=== PATIENT | female | born 1955 | race Caucasian/White ===

== ENCOUNTER 2016-12-13 15:15 | Emergency (ER) | payer OTHER, BC ==
--- NOTE | 2016-12-13 16:19 | EDDOCDS ---
Nurse's Notes [facility] Name: Lizette Jeter Age: 61 yrs Sex: Female : 1955 Arrival Date: 12/13/2016 Time: 15:15 Bed I1 / M1 Private MD: Nadine Diagnosis: Contact with and (suspected) exposure to potentially hazardous body fluids-blood to mouth Presentation: 12/13 15:26 Presenting complaint: Patient states: started an IV at 0930 the connection wasn't tight kpj and when she flushed the IV the connection came apart and bloody saline splashed into her mouth. Pt washed her mouth out with soap and water. Adult Sepsis Screening: The patient does not have new or worsening altered mentation. Patient's respiratory rate is less than 22. Systolic blood pressure is greater than 100. Patient has a qSOFA score of 0- Negative Sepsis Screen. Suicide/Homicide risk assessment- the patient denies having any suicidal and/or homicidal ideations and does not present with any other emotional, behavioral or mental health complaints. Status: Patient is not a therapeutic activities services worker or dependent. Transition of care: patient was not received from another setting of care. 15:26 Acuity: WANG Level 3 [facility] 15:26 Method Of Arrival: Walkin/Carried/Asstd [facility] Triage Assessment: 15:36 General: Appears in no apparent distress, Behavior is appropriate for age, pleasant. kpj Pain: Denies pain. Pt Declines HIV testing. Neurological: Level of Consciousness is awake, alert, Oriented to person, place, time. Respiratory: Airway is patent Respiratory effort is even, unlabored, Respiratory pattern is regular, symmetrical. Derm: Skin is pink, warm & dry. Musculoskeletal: No deficits noted. Historical: - Allergies: Latex (Anaphylaxis); preservatives (skin break down); - Home Meds: 1. metformin 750 mg HR Oral Tb24 1 tab 2 times per day (Last dose: 12/13/2016 05:30) 2. Aciphex 20 mg Oral TbEC 1 tab once daily (Last dose: 12/13/2016 05:30) 3. aspirin 81 mg Oral tab 1 tab once daily (Last dose: 12/13/2016 05:30) 4. multivitamin Oral tab 1 tablet daily (Last dose: 12/13/2016 05:30) 5. Colace oral 250 mg oral 1 cap once daily (Last dose: 12/13/2016 05:30) 6. Crestor 5 mg Oral tab 1 tab nightly (Last dose: 12/12/2016) 7. Cymbalta 30 mg Oral cpDR 1 cap nightly (Last dose: 12/12/2016) 8. biotin 1,000 mcg oral chew nightly (Last dose: 12/12/2016) 9. vivell dot 75 mcg bi weekly monday and fridays 10. Bydureon 2 mg/0.65 mL subcutaneous pnij 0.65 mL every 7 days monday 11. Miralax 17 gram/dose Oral powd once daily as needed - PMHx: GERD; Diabetes - NIDDM: controlled; Hypercholesterolemia; neuropathy; - PSHx: 3 c-sections; Hysterectomy; Appendectomy; Cholecystectomy; Laparoscopy; - Social history: Smoking status: Patient states was never smoker of tobacco. No barriers to communication noted, The patient speaks fluent Armenian. - Family history: Not pertinent. - : The pt / caregiver states he / she is not on anticoagulants. Home medication list is obtained from the patient. - Exposure Risk Screening:: None identified. Screenin:23 Sensitive Patient. kcs 16:01 Screening information is obtained from the patient. Fall risk: No risks identified. [facility] Assistance ADL's: requires no assistance with activities of daily living. Abuse/DV Screen: The patient / caregiver reports he/she is: not in a situation that causes fear, pain or injury. Nutritional screening: On diabetic diet. Advance Directives: Currently, there is no health care proxy. There is no active DNR order. There is no living will. There is no Power of Machine Whitener. Advance directive information has not previously been placed in an [facility] medical record. Further advance directive information is declined. home support is adequate. Assessment: 16:01 General: Appears in no apparent distress, comfortable, well nourished, well groomed, [facility] Behavior is appropriate for age, pleasant. Pain: Denies pain. Neurological: Level of Consciousness is awake, alert, Oriented to person, place, time. Respiratory: Airway is patent Respiratory effort is even, unlabored, Respiratory pattern is regular, symmetrical. GI: No deficits noted. Derm: Skin is pink, warm & dry. 16:16 Reassessment: Patient appears in no apparent distress at this time. Patient denies pain kpj at this time. Vital Signs: 15:36 BP 140 / 84; Pulse 82; Resp 16; Temp 98.7(O); Pulse Ox 96% on R/A; Weight 92.99 kg (R); kpj Height 5 ft. 7 in. (170.18 cm) (R); Pain 0/10; 15:36 Body Mass Index 32.11 (92.99 kg, 170.18 cm) [facility] Vitals: 15:36 Log In Time: December 13, 2016 at 15:35. [facility] ED Course: 15:17 Patient visited by Olivia Arango Digital Ad Trafficker. lbd 15:17 Nadine is Private Physician. lbd 15:17 Patient moved to Waiting lbd 15:18 Patient moved to I1 / M1 lbd 15:28 Triage Initiated kpj 15:49 Morgan Qureshi PA-C is PHCP. ar2 15:49 Rustam Hughes MD is Attending Physician. ar2 15:49 Patient visited by Morgan Qureshi PA-C. ar2 15:57 Employee Health Office, . is Referral Physician. ar2 16:01 Resting quietly. kpj 16:01 The patient / caregiver is instructed regarding the plan of care and ED course. Patient [facility] has correct armband on for positive identification. 16:01 No IV's were initiated during this patient's visit. No procedures done that require kpj assistance. 16:14 CBC with Diff Sent. kpj 16:14 Complete Comphrensive Metabolic Sent. kpj 16:14 HIV EXPOSED(ONLY WITH PEP SET) Sent. kpj 16:14 Hepatitis B Surface Antibody Sent. kpj 16:14 Hepatitis B Surface Antigen Sent. [facility] Order Results: There are currently no results for this order. Outcome: 15:59 Discharge ordered by Provider. ar2 16:16 Discharge Assessment: Patient awake, alert and oriented x 3. No cognitive and/or kpj functional deficits noted. Patient verbalized understanding of disposition instructions. patient administered narcotics - no. The following High Risk Discharge criteria are identified: None. Discharged to back to work. Condition: stable. Discharge instructions given to patient, Instructed on discharge instructions, follow up and referral plans. Demonstrated understanding of instructions, Pt was receptive of discharge instructions/ teaching. No special radiology studies were completed. Property :Personal belongings accompany Pt. 16:17 Patient left the ED. [facility] Signatures: Lorena Real RN RN kcs Olivia Arango, Digital Ad Trafficker Unit lbd Hilda Barriga RN RN Morgan Siddiqui PA-C PA-C ar2 Corrections: (The following items were deleted from the chart) 16:17 16:14 HEPATITIS C ANTIBODY+LAB sent. [facility] EDMS MTDD
--- NOTE | 2016-12-13 16:19 | EDDOCDS ---
Physician Documentation [facility] Name: Lizette Jeter Age: 61 yrs Sex: Female : 1955 Arrival Date: 12/13/2016 Time: 15:15 Bed I1 / M1 Private MD: Nadine Disposition: 12/13/16 15:59 Discharged to Home/Self Care. Impression: Contact with and (suspected) exposure to potentially hazardous body fluids - blood to mouth. - Condition is Stable. - Discharge Instructions: Body Fluid Exposure Information. - Medication Reconciliation, Local Pharmacy Hours form. - Follow up: Employee Health Office, .; When: Call to arrange an appointment; Reason: Recheck today's complaints, Continuance of care. - Problem is new. - Symptoms are unchanged. - Notes: contact employee health for follow up. Historical: - Allergies: Latex (Anaphylaxis); preservatives (skin break down); - Home Meds: 1. metformin 750 mg HR Oral Tb24 1 tab 2 times per day (Last dose: 12/13/2016 05:30) 2. Aciphex 20 mg Oral TbEC 1 tab once daily (Last dose: 12/13/2016 05:30) 3. aspirin 81 mg Oral tab 1 tab once daily (Last dose: 12/13/2016 05:30) 4. multivitamin Oral tab 1 tablet daily (Last dose: 12/13/2016 05:30) 5. Colace oral 250 mg oral 1 cap once daily (Last dose: 12/13/2016 05:30) 6. Crestor 5 mg Oral tab 1 tab nightly (Last dose: 12/12/2016) 7. Cymbalta 30 mg Oral cpDR 1 cap nightly (Last dose: 12/12/2016) 8. biotin 1,000 mcg oral chew nightly (Last dose: 12/12/2016) 9. vivell dot 75 mcg bi weekly monday and fridays 10. Bydureon 2 mg/0.65 mL subcutaneous pnij 0.65 mL every 7 days monday nights 11. Miralax 17 gram/dose Oral powd once daily as needed - PMHx: GERD; Diabetes - NIDDM: controlled; Hypercholesterolemia; neuropathy; - PSHx: 3 c-sections; Hysterectomy; Appendectomy; Cholecystectomy; Laparoscopy; - Social history: Smoking status: Patient states was never smoker of tobacco. No barriers to communication noted, The patient speaks fluent Tongan. - Family history: Not pertinent. - : The pt / caregiver states he / she is not on anticoagulants. Home medication list is obtained from the patient. - Exposure Risk Screening:: None identified. Vital Signs: 12/13 15:36 BP 140 / 84; Pulse 82; Resp 16; Temp 98.7(O); Pulse Ox 96% on R/A; Weight 92.99 kg / kpj 205.01 lbs (R); Height 5 ft. 7 in. (170.18 cm) (R); Pain 0/10; 15:36 Body Mass Index 32.11 (92.99 kg, 170.18 cm) [facility] MDM: 15:57 Consult Employee [employer] ([employer], 7:30a-4p) or Nursing Environmental Professional for source patient ar2 testing ordered. 15:57 Place PEP packet on chart ordered. ar2 15:58 CBC with Diff Ordered. EDMS 15:58 Complete Comphrensive Metabolic Ordered. EDMS 15:58 HIV EXPOSED(ONLY WITH PEP SET) Ordered. EDMS 15:58 Hepatitis B Surface Antibody Ordered. EDMS 15:58 Hepatitis B Surface Antigen Ordered. EDMS 16:01 Consult [employer] ([employer], 7:30a-4p) or Nursing Environmental Professional for source patient [facility] testing complete. 16:17 HEPATITIS C ANTIBODY Ordered. EDMS Signatures: Dispatcher [employer] Hilda Rosa RN RN Morgan Smith PA-C PA-C ar2 The chart was reviewed and I authenticate all verbal orders and agree with the evaluation and treatment provided.Corrections: (The following items were deleted from the chart) 16:17 15:58 HEPATITIS C ANTIBODY+LAB ordered. EDMS EDMS MTDD
[2016-12-13 16:30] LABS: BASO % 0.4 % (0.0-1.0); EOS # 0.1 K/mm3 (0.0-0.50); EOS % 1.6 % (0.0-3.0); LARGE UNSTAINED CELL # 0.1 K/mm3 (0.0-0.4); LARGE UNSTAINED CELL % 1.5 % (0.0-4.0); LYMPH # 2.5 K/mm3 (1.5-4.5); LYMPH % 27.2 % (24.0-44.0); MEAN CORPUSCULAR HEMOGLOBIN 29.8 pg (27.0-33.0); MEAN CORPUSCULAR HGB CONC 32.3 g/dl (32.0-36.5); MEAN CORPUSCULAR VOLUME 92.3 fl (80.0-96.0); MONO # 0.4 K/mm3 (0.0-0.8); MONO % 4.6 % (0.0-5.0); NEUTROPHILS # 5.6 K/mm3 (1.8-7.7); NEUTROPHILS % 64.7 % (36.0-66.0); PLATELET COUNT, AUTOMATED 337 k/mm3 (150-450); RED CELL DISTRIBUTION WIDTH 12.8 % (11.5-14.5); WHITE BLOOD COUNT 8.6 K/mm3 (4.0-10.0)
[2016-12-13 16:43] LABS: ALBUMIN 3.8 GM/DL (3.2-5.2); ALBUMIN/GLOBULIN RATIO 1.15 (1.00-1.93); ALKALINE PHOSPHATASE 89 U/L (45-117); ALT/SGPT 30 U/L (12-78); ANION GAP 10 MEQ/L (8-16); AST/SGOT 22 U/L (15-37); BILIRUBIN,TOTAL 0.2 MG/DL (0.2-1.0); BLOOD UREA NITROGEN 12 MG/DL (7-18); CALCIUM LEVEL 8.5 MG/DL (8.5-10.1); CARBON DIOXIDE LEVEL 24 MEQ/L (21-32); CHLORIDE LEVEL 105 MEQ/L (98-107); CREATININE FOR GFR 0.99 MG/DL (0.55-1.02); GLOMERULAR FILTRATION RATE > 60.0 (>51); GLUCOSE, FASTING 237 MG/DL (70-105); SODIUM LEVEL 139 MEQ/L (136-145); TOTAL PROTEIN 7.1 GM/DL (6.4-8.2)
[2016-12-13 16:55] LABS: CONTROL LINE INT CTR LINE PRESENT
[2016-12-14 09:59] LABS: HEPATITIS B SURFACE ANTIBODY POSITIVE (POSITIVE)
--- NOTE | 2016-12-15 17:18 | EDDOCDS ---
Nurse's Notes [facility] Name: Lizette Jeter Age: 61 yrs Sex: Female : 1955 Arrival Date: 12/13/2016 Time: 15:15 Bed I1 / M1 Private MD: Nadine Diagnosis: Contact with and (suspected) exposure to potentially hazardous body fluids-blood to mouth Presentation: 12/13 15:26 Presenting complaint: Patient states: started an IV at 0930 the connection wasn't tight kpj and when she flushed the IV the connection came apart and bloody saline splashed into her mouth. Pt washed her mouth out with soap and water. Adult Sepsis Screening: The patient does not have new or worsening altered mentation. Patient's respiratory rate is less than 22. Systolic blood pressure is greater than 100. Patient has a qSOFA score of 0- Negative Sepsis Screen. Suicide/Homicide risk assessment- the patient denies having any suicidal and/or homicidal ideations and does not present with any other emotional, behavioral or mental health complaints. Status: Patient is not a auto service dispatcher or dependent. Transition of care: patient was not received from another setting of care. 15:26 Acuity: WANG Level 3 [facility] 15:26 Method Of Arrival: Walkin/Carried/Asstd [facility] Triage Assessment: 15:36 General: Appears in no apparent distress, Behavior is appropriate for age, pleasant. kpj Pain: Denies pain. Pt Declines HIV testing. Neurological: Level of Consciousness is awake, alert, Oriented to person, place, time. Respiratory: Airway is patent Respiratory effort is even, unlabored, Respiratory pattern is regular, symmetrical. Derm: Skin is pink, warm & dry. Musculoskeletal: No deficits noted. Historical: - Allergies: Latex (Anaphylaxis); preservatives (skin break down); - Home Meds: 1. metformin 750 mg HR Oral Tb24 1 tab 2 times per day (Last dose: 12/13/2016 05:30) 2. Aciphex 20 mg Oral TbEC 1 tab once daily (Last dose: 12/13/2016 05:30) 3. aspirin 81 mg Oral tab 1 tab once daily (Last dose: 12/13/2016 05:30) 4. multivitamin Oral tab 1 tablet daily (Last dose: 12/13/2016 05:30) 5. Colace oral 250 mg oral 1 cap once daily (Last dose: 12/13/2016 05:30) 6. Crestor 5 mg Oral tab 1 tab nightly (Last dose: 12/12/2016) 7. Cymbalta 30 mg Oral cpDR 1 cap nightly (Last dose: 12/12/2016) 8. biotin 1,000 mcg oral chew nightly (Last dose: 12/12/2016) 9. vivell dot 75 mcg bi weekly monday and fridays 10. Bydureon 2 mg/0.65 mL subcutaneous pnij 0.65 mL every 7 days monday 11. Miralax 17 gram/dose Oral powd once daily as needed - PMHx: GERD; Diabetes - NIDDM: controlled; Hypercholesterolemia; neuropathy; - PSHx: 3 c-sections; Hysterectomy; Appendectomy; Cholecystectomy; Laparoscopy; - Social history: Smoking status: Patient states was never smoker of tobacco. No barriers to communication noted, The patient speaks fluent Amharic. - Family history: Not pertinent. - : The pt / caregiver states he / she is not on anticoagulants. Home medication list is obtained from the patient. - Exposure Risk Screening:: None identified. Screenin:23 Sensitive Patient. kcs 16:01 Screening information is obtained from the patient. Fall risk: No risks identified. [facility] Assistance ADL's: requires no assistance with activities of daily living. Abuse/DV Screen: The patient / caregiver reports he/she is: not in a situation that causes fear, pain or injury. Nutritional screening: On diabetic diet. Advance Directives: Currently, there is no health care proxy. There is no active DNR order. There is no living will. 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 Advance directive information has not previously been placed in an [facility] medical record. Further advance directive information is declined. home support is adequate. Assessment: 16:01 General: Appears in no apparent distress, comfortable, well nourished, well groomed, [facility] Behavior is appropriate for age, pleasant. Pain: Denies pain. Neurological: Level of Consciousness is awake, alert, Oriented to person, place, time. Respiratory: Airway is patent Respiratory effort is even, unlabored, Respiratory pattern is regular, symmetrical. GI: No deficits noted. Derm: Skin is pink, warm & dry. 16:16 Reassessment: Patient appears in no apparent distress at this time. Patient denies pain [facility] at this time. Vital Signs: 15:36 BP 140 / 84; Pulse 82; Resp 16; Temp 98.7(O); Pulse Ox 96% on R/A; Weight 92.99 kg (R); kpj Height 5 ft. 7 in. (170.18 cm) (R); Pain 0/10; 15:36 Body Mass Index 32.11 (92.99 kg, 170.18 cm) [facility] Vitals: 15:36 Log In Time: December 13, 2016 at 15:35. [facility] ED Course: 15:17 Patient visited by Olivia Arango Prototyper. lbd 15:17 [place] is Private Physician. lbd 15:17 Patient moved to Waiting lbd 15:18 Patient moved to I1 / M1 lbd 15:28 Triage Initiated kpj 15:49 Morgan Qureshi PA-C is PHCP. ar2 15:49 Rustam Hughes MD is Attending Physician. ar2 15:49 Patient visited by Morgan Qureshi PA-C. ar2 15:57 Employee Health Office, . is Referral Physician. ar2 16:01 Resting quietly. kpj 16:01 The patient / caregiver is instructed regarding the plan of care and ED course. Patient [facility] has correct armband on for positive identification. 16:01 No IV's were initiated during this patient's visit. No procedures done that require [facility] assistance. 16:14 CBC with Diff Sent. kpj 16:14 Complete Comphrensive Metabolic Sent. kpj 16:14 HIV EXPOSED(ONLY WITH PEP SET) Sent. kpj 16:14 Hepatitis B Surface Antibody Sent. kpj 16:14 Hepatitis B Surface Antigen Sent. [facility] 12/14 11:08 T-Sheet-- Draft Copy was scanned into [employer] and attached to record. 11:09 Other: PEP was scanned into [employer] and attached to record. 12/15 07:31 [facility] [place] [facility] Payment Agreement was scanned into [employer] and attached to record. Order Results: Lab Order: CBC with Diff; SPEC'M 12/13/16 16:08 Test: WHITE BLOOD COUNT; Value: 8.6; Range: 4.0-10.0; Units: K/mm3; Status: F Test: RED BLOOD COUNT; Value: 4.00; Range: 4.00-5.40; Units: M/mm3; Status: F Test: HEMOGLOBIN; Value: 11.9; Range: 12.0-16.0; Abnormal: Below low normal; Units: g/dl; Status: F Test: HEMATOCRIT; Value: 36.9; Range: 36.0-47.0; Units: %; Status: F Test: MEAN CORPUSCULAR VOLUME; Value: 92.3; Range: 80.0-96.0; Units: fl; Status: F Test: MEAN CORPUSCULAR HEMOGLOBIN; Value: 29.8; Range: 27.0-33.0; Units: pg; Status: F Test: MEAN CORPUSCULAR HGB CONC; Value: 32.3; Range: 32.0-36.5; Units: g/dl; Status: F Test: RED CELL DISTRIBUTION WIDTH; Value: 12.8; Range: 11.5-14.5; Units: %; Status: F Test: PLATELET COUNT, AUTOMATED; Value: 337; Range: 150-450; Units: k/mm3; Status: F Test: NEUTROPHILS %; Value: 64.7; Range: 36.0-66.0; Units: %; Status: F Test: LYMPH %; Value: 27.2; Range: 24.0-44.0; Units: %; Status: F Test: MONO %; Value: 4.6; Range: 0.0-5.0; Units: %; Status: F Test: EOS %; Value: 1.6; Range: 0.0-3.0; Units: %; Status: F Test: BASO %; Value: 0.4; Range: 0.0-1.0; Units: %; Status: F Test: LARGE UNSTAINED CELL %; Value: 1.5; Range: 0.0-4.0; Units: %; Status: F Test: NEUTROPHILS #; Value: 5.6; Range: 1.8-7.7; Units: K/mm3; Status: F Test: LYMPH #; Value: 2.5; Range: 1.5-4.5; Units: K/mm3; Status: F Test: MONO #; Value: 0.4; Range: 0.0-0.8; Units: K/mm3; Status: F Test: EOS #; Value: 0.1; Range: 0.0-0.50; Units: K/mm3; Status: F Test: BASO #; Value: 0.0; Range: 0.0-0.2; Units: K/mm3; Status: F Test: LARGE UNSTAINED CELL #; Value: 0.1; Range: 0.0-0.4; Units: K/mm3; Status: F Lab Order: Complete Comphrensive Metabolic; SPEC'M 12/13/16 16:08 Test: GLUCOSE, FASTING; Value: 237; Range: 70-105; Abnormal: Above high normal; Units: MG/DL; Status: F Test: BLOOD UREA NITROGEN; Value: 12; Range: 7-18; Units: MG/DL; Status: F Test: CREATININE FOR GFR; Value: 0.99; Range: 0.55-1.02; Units: MG/DL; Status: F Test: GLOMERULAR FILTRATION RATE; Value: > 60.0; Range: >51; Status: F Test: SODIUM LEVEL; Value: 139; Range: 136-145; Units: MEQ/L; Status: F Test: POTASSIUM SERUM; Value: 4.0; Range: 3.5-5.1; Units: MEQ/L; Status: F Test: CHLORIDE LEVEL; Value: 105; Range: 98-107; Units: MEQ/L; Status: F Test: CARBON DIOXIDE LEVEL; Value: 24; Range: 21-32; Units: MEQ/L; Status: F Test: ANION GAP; Value: 10; Range: 8-16; Units: MEQ/L; Status: F Test: CALCIUM LEVEL; Value: 8.5; Range: 8.5-10.1; Units: MG/DL; Status: F Test: AST/SGOT; Value: 22; Range: 15-37; Units: U/L; Status: F Test: ALT/SGPT; Value: 30; Range: 12-78; Units: U/L; Status: F Test: ALKALINE PHOSPHATASE; Value: 89; Range: 45-117; Units: U/L; Status: F Test: BILIRUBIN,TOTAL; Value: 0.2; Range: 0.2-1.0; Units: MG/DL; Status: F Test: TOTAL PROTEIN; Value: 7.1; Range: 6.4-8.2; Units: GM/DL; Status: F Test: ALBUMIN; Value: 3.8; Range: 3.2-5.2; Units: GM/DL; Status: F Test: ALBUMIN/GLOBULIN RATIO; Value: 1.15; Range: 1.00-1.93; Status: F Test Note: ; Units are mL/min/1.73 m2 Chronic Kidney Disease Staging per NKF: Stage I & II GFR >=60 Normal to Mildly Decreased Stage III GFR 30-59 Moderately Decreased Stage IV GFR 15-29 Severely Decreased Stage V GFR <15 Very Little GFR Left ESRD GFR <15 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 Sensitivity of the assay is 100%. Specificity of the assay is 99.7%. Lab Order: Hepatitis B Surface Antibody; SPEC'M 12/13/16 16:08 Test: HEPATITIS B SURFACE ANTIBODY; Value: POSITIVE; Range: POSITIVE; Status: F Lab Order: Hepatitis B Surface Antigen; SPEC' 12/13/16 16:08 Test: HEPATITIS B SURFACE ANTIGEN; Value: NEGATIVE; Range: NEGATIVE; Status: F Lab Order: HEPATITIS C ANTIBODY; SPEC' 12/13/16 16:08 Test: HEPATITIS C VIRUS JONEL INDEX; Value: 0.1; Range: <0.8; Units: INDEX; Status: F Test Note: ; Negative Not infected with HCV, unless recent infection is suspected or other evidence exists to indicate HCV infection. Outcome: 12/13 15:59 Discharge ordered by Provider. ar2 16:16 Discharge Assessment: Patient awake, alert and oriented x 3. No cognitive and/or kpj functional deficits noted. Patient verbalized understanding of disposition instructions. patient administered narcotics - no. The following High Risk Discharge criteria are identified: None. Discharged to back to work. Condition: stable. Discharge instructions given to patient, Instructed on discharge instructions, follow up and referral plans. Demonstrated understanding of instructions, Pt was receptive of discharge instructions/ teaching. No special radiology studies were completed. Property :Personal belongings accompany Pt. 16:17 Patient left the ED. [facility] Signatures: Lorena Real, RN RN Olivia Bee, Prototyper Unit lbd Hilda Barriga RN RN Danna Galarza, Reg Reg gb Morgan Qureshi, HUMA FINN ar2 Corrections: (The following items were deleted from the chart) 16:17 16:14 HEPATITIS C ANTIBODY+LAB sent. [facility] EDMS Chart Complete MTDD
--- NOTE | 2016-12-15 17:18 | EDDOCDS ---
Physician Documentation [facility] Name: Lizette Jeter Age: 61 yrs Sex: Female : 1955 Arrival Date: 12/13/2016 Time: 15:15 Bed I1 / M1 Private MD: Nadine Disposition: 12/13/16 15:59 Discharged to Home/Self Care. Impression: Contact with and (suspected) exposure to potentially hazardous body fluids - blood to mouth. - Condition is Stable. - Discharge Instructions: Body Fluid Exposure Information. - Medication Reconciliation, Local Pharmacy Hours form. - Follow up: Employee Health Office, .; When: Call to arrange an appointment; Reason: Recheck today's complaints, Continuance of care. - Problem is new. - Symptoms are unchanged. - Notes: contact employee health for follow up. Historical: - Allergies: Latex (Anaphylaxis); preservatives (skin break down); - Home Meds: 1. metformin 750 mg HR Oral Tb24 1 tab 2 times per day (Last dose: 12/13/2016 05:30) 2. Aciphex 20 mg Oral TbEC 1 tab once daily (Last dose: 12/13/2016 05:30) 3. aspirin 81 mg Oral tab 1 tab once daily (Last dose: 12/13/2016 05:30) 4. multivitamin Oral tab 1 tablet daily (Last dose: 12/13/2016 05:30) 5. Colace oral 250 mg oral 1 cap once daily (Last dose: 12/13/2016 05:30) 6. Crestor 5 mg Oral tab 1 tab nightly (Last dose: 12/12/2016) 7. Cymbalta 30 mg Oral cpDR 1 cap nightly (Last dose: 12/12/2016) 8. biotin 1,000 mcg oral chew nightly (Last dose: 12/12/2016) 9. vivell dot 75 mcg bi weekly monday and fridays 10. Bydureon 2 mg/0.65 mL subcutaneous pnij 0.65 mL every 7 days monday nights 11. Miralax 17 gram/dose Oral powd once daily as needed - PMHx: GERD; Diabetes - NIDDM: controlled; Hypercholesterolemia; neuropathy; - PSHx: 3 c-sections; Hysterectomy; Appendectomy; Cholecystectomy; Laparoscopy; - Social history: Smoking status: Patient states was never smoker of tobacco. No barriers to communication noted, The patient speaks fluent Bruneian. - Family history: Not pertinent. - : The pt / caregiver states he / she is not on anticoagulants. Home medication list is obtained from the patient. - Exposure Risk Screening:: None identified. Vital Signs: 12/13 15:36 BP 140 / 84; Pulse 82; Resp 16; Temp 98.7(O); Pulse Ox 96% on R/A; Weight 92.99 kg / kpj 205.01 lbs (R); Height 5 ft. 7 in. (170.18 cm) (R); Pain 0/10; 15:36 Body Mass Index 32.11 (92.99 kg, 170.18 cm) [facility] MDM: 15:57 Consult Employee [employer] ([employer], 7:30a-4p) or Nursing Spray Gun Striper for source patient ar2 testing ordered. 15:57 Place PEP packet on chart ordered. ar2 15:58 CBC with Diff Ordered. EDMS 15:58 Complete Comphrensive Metabolic Ordered. EDMS 15:58 HIV EXPOSED(ONLY WITH PEP SET) Ordered. EDMS 15:58 Hepatitis B Surface Antibody Ordered. EDMS 15:58 Hepatitis B Surface Antigen Ordered. EDMS 16:01 Consult [employer] ([employer], 7:30a-4p) or Nursing Spray Gun Striper for source patient [facility] testing complete. 16:17 HEPATITIS C ANTIBODY Ordered. [facility] 12/14 11:08 T-Sheet-- Draft Copy was scanned into [employer] and attached to record. gb 11:09 Other: PEP was scanned into [employer] and attached to record. 12/15 07:31 [facility] Payment Agreement was scanned into [employer] and attached to record. Signatures: Dispatcher [employer] [facility] Hilda Barriga RN RN [facility] Danna Sinclair, Reg Reg Morgan Qureshi PA-C PA-C ar2 The chart was reviewed and I authenticate all verbal orders and agree with the evaluation and treatment provided.Corrections: (The following items were deleted from the chart) 12/13 16:17 15:58 HEPATITIS C ANTIBODY+LAB ordered. EDNM EDNM Attachments: 12/14 11:08 T-Sheet-- Draft Copy gb 12/15 07:31 [facility] Payment Agreement gb Chart Complete MTDD
--- NOTE | 2016-12-15 17:18 | EDDOCDS ---
Physician Documentation [facility] Name: Lizette Jeter Age: 61 yrs Sex: Female : 1955 Arrival Date: 12/13/2016 Time: 15:15 Bed I1 / M1 Private MD: Nadine Disposition: 12/13/16 15:59 Discharged to Home/Self Care. Impression: Contact with and (suspected) exposure to potentially hazardous body fluids - blood to mouth. - Condition is Stable. - Discharge Instructions: Body Fluid Exposure Information. - Medication Reconciliation, Local Pharmacy Hours form. - Follow up: Employee Health Office, .; When: Call to arrange an appointment; Reason: Recheck today's complaints, Continuance of care. - Problem is new. - Symptoms are unchanged. - Notes: contact employee health for follow up. Historical: - Allergies: Latex (Anaphylaxis); preservatives (skin break down); - Home Meds: 1. metformin 750 mg HR Oral Tb24 1 tab 2 times per day (Last dose: 12/13/2016 05:30) 2. Aciphex 20 mg Oral TbEC 1 tab once daily (Last dose: 12/13/2016 05:30) 3. aspirin 81 mg Oral tab 1 tab once daily (Last dose: 12/13/2016 05:30) 4. multivitamin Oral tab 1 tablet daily (Last dose: 12/13/2016 05:30) 5. Colace oral 250 mg oral 1 cap once daily (Last dose: 12/13/2016 05:30) 6. Crestor 5 mg Oral tab 1 tab nightly (Last dose: 12/12/2016) 7. Cymbalta 30 mg Oral cpDR 1 cap nightly (Last dose: 12/12/2016) 8. biotin 1,000 mcg oral chew nightly (Last dose: 12/12/2016) 9. vivell dot 75 mcg bi weekly monday and fridays 10. Bydureon 2 mg/0.65 mL subcutaneous pnij 0.65 mL every 7 days monday nights 11. Miralax 17 gram/dose Oral powd once daily as needed - PMHx: GERD; Diabetes - NIDDM: controlled; Hypercholesterolemia; neuropathy; - PSHx: 3 c-sections; Hysterectomy; Appendectomy; Cholecystectomy; Laparoscopy; - Social history: Smoking status: Patient states was never smoker of tobacco. No barriers to communication noted, The patient speaks fluent Kenyan. - Family history: Not pertinent. - : The pt / caregiver states he / she is not on anticoagulants. Home medication list is obtained from the patient. - Exposure Risk Screening:: None identified. Vital Signs: 12/13 15:36 BP 140 / 84; Pulse 82; Resp 16; Temp 98.7(O); Pulse Ox 96% on R/A; Weight 92.99 kg / kpj 205.01 lbs (R); Height 5 ft. 7 in. (170.18 cm) (R); Pain 0/10; 15:36 Body Mass Index 32.11 (92.99 kg, 170.18 cm) [facility] MDM: 15:57 Consult Employee [employer] ([employer], 7:30a-4p) or Nursing Hotel Security Officer for source patient ar2 testing ordered. 15:57 Place PEP packet on chart ordered. ar2 15:58 CBC with Diff Ordered. EDMS 15:58 Complete Comphrensive Metabolic Ordered. EDMS 15:58 HIV EXPOSED(ONLY WITH PEP SET) Ordered. EDMS 15:58 Hepatitis B Surface Antibody Ordered. EDMS 15:58 Hepatitis B Surface Antigen Ordered. EDMS 16:01 Consult [employer] ([employer], 7:30a-4p) or Nursing Hotel Security Officer for source patient [facility] testing complete. 16:17 HEPATITIS C ANTIBODY Ordered. [facility] 12/14 11:08 T-Sheet-- Draft Copy was scanned into [employer] and attached to record. gb 11:09 Other: PEP was scanned into [employer] and attached to record. 12/15 07:31 [facility] Payment Agreement was scanned into [employer] and attached to record. Signatures: Dispatcher [employer] [facility] Hilda Barriga RN RN [facility] Danna Sinclair, Reg Reg Morgan Qureshi PA-C PA-C ar2 The chart was reviewed and I authenticate all verbal orders and agree with the evaluation and treatment provided.Corrections: (The following items were deleted from the chart) 12/13 16:17 15:58 HEPATITIS C ANTIBODY+LAB ordered. EDLA EDLA Attachments: 12/14 11:08 T-Sheet-- Draft Copy gb 12/15 07:31 [facility] Payment Agreement gb Chart Complete MTDD
== END 2016-12-13 16:17 | disposition home or self-care (01) ==
LOC: M ED 15:15
DX: Z77.21 Contact with and (suspected) exposure to potentially hazardous body fluids (principal); E11.9 Type 2 diabetes mellitus without complications; K21.9 Gastro-esophageal reflux disease without esophagitis; E78.00 Pure hypercholesterolemia, unspecified; G62.9 Polyneuropathy, unspecified; Z79.899 Other long term (current) drug therapy; Z79.84 Long term (current) use of oral hypoglycemic drugs; Z79.82 Long term (current) use of aspirin; Z91.040 Latex allergy status

== ENCOUNTER → 2017-03-20 | Outpatient (CLI) | payer BC, OTHER ==
[2017-03-20 10:02] LABS: BASO % 0.3 % (0.0-1.0); EOS % 0.7 % (0.0-3.0); LARGE UNSTAINED CELL # 0.1 K/mm3 (0.0-0.4); LARGE UNSTAINED CELL % 1.6 % (0.0-4.0); LYMPH % 27.4 % (24.0-44.0); MEAN CORPUSCULAR HGB CONC 33.8 g/dl (32.0-36.5); MEAN CORPUSCULAR VOLUME 91.8 fl (80.0-96.0); MONO # 0.4 K/mm3 (0.0-0.8); MONO % 5.3 % (0.0-5.0); NEUTROPHILS # 4.4 K/mm3 (1.8-7.7); NEUTROPHILS % 64.8 % (36.0-66.0); PLATELET COUNT, AUTOMATED 290 k/mm3 (150-450); RED CELL DISTRIBUTION WIDTH 13.1 % (11.5-14.5); WHITE BLOOD COUNT 6.8 K/mm3 (4.0-10.0)
[2017-03-20 10:13] LABS: ALBUMIN 3.5 GM/DL (3.2-5.2); PERCENT SATURATION 15.9 % (13.2-37.4)
== END ==
LOC: M LAB 09:10
PROVIDERS: ATTEND Orthopaedic Surgery
DX: Z01.818 Encounter for other preprocedural examination (principal); E11.9 Type 2 diabetes mellitus without complications; D63.8 Anemia in other chronic diseases classified elsewhere; M25.551 Pain in right hip; M16.11 Unilateral primary osteoarthritis, right hip

== ENCOUNTER → 2017-10-04 | Outpatient (CLI) | payer BC, OTHER ==
[2017-10-04 12:48] LABS: ALBUMIN 3.5 GM/DL (3.2-5.2); ALBUMIN/GLOBULIN RATIO 1.03 (1.00-1.93); ALKALINE PHOSPHATASE 85 U/L (45-117); ALT/SGPT 29 U/L (12-78); ANION GAP 8 MEQ/L (8-16); AST/SGOT 20 U/L (7-37); BILIRUBIN,TOTAL 0.3 MG/DL (0.2-1.0); BLOOD UREA NITROGEN 11 MG/DL (7-18); CALCIUM LEVEL 8.9 MG/DL (8.8-10.2); CARBON DIOXIDE LEVEL 29 MEQ/L (21-32); CHLORIDE LEVEL 102 MEQ/L (98-107); CHOLESTEROL LEVEL 165 MG/DL (<200); CREATININE FOR GFR 0.77 MG/DL (0.55-1.02); GLOMERULAR FILTRATION RATE > 60.0 (>45); GLUCOSE, FASTING 148 MG/DL (80-110); POTASSIUM SERUM 4.6 MEQ/L (3.5-5.1); SODIUM LEVEL 139 MEQ/L (136-145); TOTAL PROTEIN 6.9 GM/DL (6.4-8.2); TRIGLYCERIDES LEVEL 172 MG/DL (<150)
== END ==
LOC: M LRY 07:48
PROVIDERS: ATTEND Internal Medicine
DX: E11.42 Type 2 diabetes mellitus with diabetic polyneuropathy (principal); E78.00 Pure hypercholesterolemia, unspecified; E11.65 Type 2 diabetes mellitus with hyperglycemia

== ENCOUNTER → 2018-01-19 | Outpatient (REF) | payer OTHER | LOC: M SFHCLUC 16:10 | DX: J02.9 Acute pharyngitis, unspecified (principal) ==

== ENCOUNTER → 2018-04-10 | Outpatient (CLI) | payer BC, OTHER ==
[2018-04-10 07:13] LABS: BASO % 0.5 % (0.0-1.0); EOS # 0.1 10^3/uL (0.0-0.50); EOS % 1.6 % (0.0-3.0); HEMATOCRIT 36.9 % (36.0-47.0); HEMOGLOBIN 11.9 g/dl (12.0-15.5); IMMATURE GRANULOCYTE % 0.3 % (0-3.0); LYMPH # 2.3 10^3/uL (1.5-4.5); LYMPH % 30.3 % (24.0-44.0); MEAN CORPUSCULAR HEMOGLOBIN 28.8 pg (27.0-33.0); MEAN CORPUSCULAR HGB CONC 32.2 g/dl (32.0-36.5); MEAN CORPUSCULAR VOLUME 89.3 fl (80.0-96.0); MONO # 0.6 10^3/uL (0.0-0.8); MONO % 7.2 % (0.0-5.0); NEUTROPHILS # 4.6 10^3/uL (1.8-7.7); NEUTROPHILS % 60.1 % (36.0-66.0); PLATELET COUNT, AUTOMATED 326 10^3/uL (150-450); RED BLOOD COUNT 4.13 10^6/uL (4.00-5.40); RED CELL DISTRIBUTION WIDTH 13.8 % (11.5-14.5); WHITE BLOOD COUNT 7.6 10^3/uL (4.0-10.0)
[2018-04-10 07:30] LABS: ESTIMATED AVERAGE GLUCOSE 183 MG/DL (60-110)
[2018-04-10 07:37] LABS: ANION GAP 10 MEQ/L (8-16); BLOOD UREA NITROGEN 17 MG/DL (7-18); CARBON DIOXIDE LEVEL 25 MEQ/L (21-32); CHLORIDE LEVEL 105 MEQ/L (98-107); CREATININE FOR GFR 0.94 MG/DL (0.55-1.30); GLOMERULAR FILTRATION RATE > 60.0 (>45); GLUCOSE, FASTING 139 MG/DL (70-100); POTASSIUM SERUM 4.3 MEQ/L (3.5-5.1); SODIUM LEVEL 140 MEQ/L (136-145)
== END ==
LOC: M LAB 06:43
DX: E11.42 Type 2 diabetes mellitus with diabetic polyneuropathy (principal)

== ENCOUNTER 2018-10-01 11:19 | Emergency (ER) | payer BC, OTHER ==
[2018-10-01 11:54] LABS: BASO % 0.4 % (0.0-1.0); EOS # 0.1 10^3/uL (0.0-0.50); EOS % 1.2 % (0.0-3.0); HEMATOCRIT 36.9 % (36.0-47.0); IMMATURE GRANULOCYTE % 0.3 % (0-3.0); LYMPH # 2.2 10^3/uL (1.5-4.5); LYMPH % 33.3 % (24.0-44.0); MEAN CORPUSCULAR HEMOGLOBIN 28.4 pg (27.0-33.0); MEAN CORPUSCULAR HGB CONC 32.5 g/dl (32.0-36.5); MEAN CORPUSCULAR VOLUME 87.4 fl (80.0-96.0); MONO # 0.5 10^3/uL (0.0-0.8); MONO % 8.1 % (0.0-5.0); NEUTROPHILS # 3.8 10^3/uL (1.8-7.7); NEUTROPHILS % 56.7 % (36.0-66.0); PLATELET COUNT, AUTOMATED 336 10^3/uL (150-450); RED BLOOD COUNT 4.22 10^6/uL (4.00-5.40); RED CELL DISTRIBUTION WIDTH 13.5 % (11.5-14.5); WHITE BLOOD COUNT 6.7 10^3/uL (4.0-10.0)
[2018-10-01 12:10] LABS: INR 0.96; PROTHROMBIN TIME 12.9 SECONDS (12.1-14.4)
[2018-10-01 12:31] LABS: ANION GAP 10 MEQ/L (8-16); BLOOD UREA NITROGEN 15 MG/DL (7-18); CALCIUM LEVEL 8.5 MG/DL (8.8-10.2); CARBON DIOXIDE LEVEL 24 MEQ/L (21-32); CHLORIDE LEVEL 104 MEQ/L (98-107); CPK CREATINE PHOSPHOKINASE 162 U/L (26-192); CREATININE FOR GFR 0.94 MG/DL (0.55-1.30); GLOMERULAR FILTRATION RATE > 60.0 (>45); GLUCOSE, FASTING 150 MG/DL (70-100); MB/CK RELATIVE INDEX 2.65 (< OR =4); SODIUM LEVEL 138 MEQ/L (136-145); TROPONIN I < 0.02 NG/ML (< 0.10)
[2018-10-01] MEDS: ASPIRIN 81 MG CHEW TABLET PO (12:57)
[2018-10-01] MEDS: amLODIPine 5 MG TAB PO (12:57)
[2018-10-01] MEDS: MORPHINE 2 MG/ML 1ML SYRINGE (J2270) IV (12:58)
[2018-10-01 13:16] LABS: D-DIMER QUANT < 270 ng/ml (<500)
== END 2018-10-01 15:00 | disposition home or self-care (01) ==
LOC: M ED 11:19
DX: I10 Essential (primary) hypertension (principal); M50.30 Other cervical disc degeneration, unspecified cervical region; E11.9 Type 2 diabetes mellitus without complications; E78.5 Hyperlipidemia, unspecified; G62.9 Polyneuropathy, unspecified; K21.9 Gastro-esophageal reflux disease without esophagitis; Z79.899 Other long term (current) drug therapy; Z79.84 Long term (current) use of oral hypoglycemic drugs; Z79.82 Long term (current) use of aspirin; Z91.040 Latex allergy status
CPT/HCPCS: J2270

== ENCOUNTER → 2018-11-02 | Outpatient (CLI) | payer BC, OTHER ==
[~2018-11-02] MED LIST: ASPI81TA85 PO; BYDU1INJ; CALC500T36 PO; COLA100C5 PO; DULO1CAP3; ESTR0.1C5; JANU25TA PO; JARD1TAB3; JARD1TAB3 PO; METF-723; MULTTAB PO; NORV5TAB PO; RABE1TAB; REST0.05 OP; ROSU5TAB4; [UNRECOGNIZED DRUG - CODE] TD
[2018-11-02 07:21] LABS: BASO % 0.3 % (0.0-1.0); EOS # 0.1 10^3/uL (0.0-0.50); EOS % 1.1 % (0.0-3.0); HEMATOCRIT 37.1 % (36.0-47.0); HEMOGLOBIN 11.9 g/dl (12.0-15.5); LYMPH # 1.9 10^3/uL (1.5-4.5); LYMPH % 29.9 % (24.0-44.0); MEAN CORPUSCULAR HEMOGLOBIN 28.3 pg (27.0-33.0); MEAN CORPUSCULAR HGB CONC 32.1 g/dl (32.0-36.5); MEAN CORPUSCULAR VOLUME 88.3 fl (80.0-96.0); MONO # 0.4 10^3/uL (0.0-0.8); NEUTROPHILS # 3.9 10^3/uL (1.8-7.7); NEUTROPHILS % 61.5 % (36.0-66.0); PLATELET COUNT, AUTOMATED 320 10^3/uL (150-450); WHITE BLOOD COUNT 6.3 10^3/uL (4.0-10.0)
[2018-11-02 07:40] LABS: ALBUMIN 3.6 GM/DL (3.2-5.2); ALT/SGPT 24 U/L (12-78); BILIRUBIN,TOTAL 0.2 MG/DL (0.2-1.0); BLOOD UREA NITROGEN 12 MG/DL (7-18); CALCIUM LEVEL 8.4 MG/DL (8.8-10.2); CARBON DIOXIDE LEVEL 27 MEQ/L (21-32); CHLORIDE LEVEL 104 MEQ/L (98-107); CHOLESTEROL LEVEL 166 MG/DL (<200); CHOLESTEROL RISK RATIO 3.531 (<5); CREATININE FOR GFR 0.85 MG/DL (0.55-1.30); GLOMERULAR FILTRATION RATE > 60.0 (>45); GLUCOSE, FASTING 136 MG/DL (70-100); HDL CHOLESTEROL 47 MG/DL (>40); LDL CHOLESTEROL 87 MG/DL (<100); NON-HDL-C 119 MG/DL; POTASSIUM SERUM 4.4 MEQ/L (3.5-5.1); SODIUM LEVEL 139 MEQ/L (136-145); TOTAL PROTEIN 6.5 GM/DL (6.4-8.2); TRIGLYCERIDES LEVEL 159 MG/DL (<150)
[2018-11-02 09:16] LABS: HEMOGLOBIN A1c 8.4 %
[2018-11-02 21:28] LABS: CREATININE, URINE 87.7 MG/DL; MALB URINE SIEMENS 10.2 MG/L; MAU/CREAT RATIO 11.6 MCG/MG (0.0-30.0)
== END ==
LOC: M LAB 06:40
PROVIDERS: ATTEND Internal Medicine
DX: E11.42 Type 2 diabetes mellitus with diabetic polyneuropathy (principal); E78.00 Pure hypercholesterolemia, unspecified; E66.09 Other obesity due to excess calories

== ENCOUNTER 2018-11-05 09:14 | Day surgery (SDC) | payer BC, OTHER ==
[~2018-11-05] VITALS: Ht 170.2 cm; Wt 88.5 kg
[~2018-11-05 09:14] MED LIST changes: +NS 1,000 ML IV ONE
[2018-11-05] MEDS ORDERED: fentaNYL 100 MCG/2 ML INJECTION (J3010) As Ordered ONE (10:45)
[2018-11-05] MEDS ORDERED: LIDOCAINE 2% INJ 100 MG/5 ML SDV (FOR ANES.) As Ordered ONE (10:46)
[2018-11-05] MEDS ORDERED: PROPOFOL 500 MG/50 ML VIAL As Ordered ONE (10:48)
--- NOTE | 2018-11-05 11:23 | ROOR ---
Patient Name: Lizette Jeetr Procedure Date: 11/05/2018 11:08 AM Date of : 1955 Age: 63 Room: [facility] Gender: Female Note Status: Finalized Procedure: Upper Endoscopy + Biopsies Indications: Heartburn, Exclusion of Graham's esophagus Providers: Raul Phillips MD Referring MD: SAGAR CARVAJAL JR, MD Requesting Provider: Medicines: Monitored Anesthesia Care Complications: No immediate complications. Procedure: Pre-Anesthesia Assessment: - The heart rate, respiratory rate, oxygen saturations, blood pressure, adequacy of pulmonary ventilation, and response to care were monitored throughout the procedure. The Endoscope was introduced through the mouth, and advanced to the second part of duodenum. The upper GI endoscopy was accomplished without difficulty. The patient tolerated the procedure well. Findings: The Z-line was variable and was found 30 cm from the incisors. Multiple biopsies were obtained with cold forceps for evaluation to rule out Graham's Esophagus randomly at the gastroesophageal junction. A medium-sized hiatal hernia was present. Localized mild inflammation characterized by congestion (edema) and erythema was found in the gastric antrum. Biopsies were taken with a cold forceps for Helicobacter pylori testing. The exam of the duodenum was otherwise normal. Impression: - Z-line variable, 30 cm from the incisors. - Medium-sized hiatal hernia. - Mucosal changes suspicious for gastritis. Biopsied. - Multiple biopsies were obtained at the gastroesophageal junction. - The examination was otherwise normal. Recommendation: - Patient has a contact number available for emergencies. The signs and symptoms of potential delayed complications were discussed with the patient. Return to normal activities tomorrow. Written discharge instructions were provided to the patient. - High fiber diet. - Discharge patient to home. - Follow an antireflux regimen. - Continue present medications. - Await pathology results. - Telephone GI clinic for pathology results in 1 week. - Return to referring physician. - The findings and recommendations were discussed with the patient's family. Raul Phillips MD Raul Phillips MD 11/05/2018 11:23:36 AM This report has been signed electronically. Number of Addenda: 0 Note Initiated On: 11/05/2018 11:08 AM Estimated Blood Loss: Estimated blood loss: none.
--- NOTE | 2018-11-05 11:39 | ROOR ---
Patient Name: Lizette Jeter Procedure Date: 11/05/2018 11:11 AM Date of : 1955 Age: 63 Room: [facility] Gender: Female Note Status: Finalized Procedure: Total Colonoscopy to Cecum Indications: High risk colon cancer surveillance: Personal history of colonic polyps Providers: Raul Phillips MD Referring MD: SAGAR CARVAJAL JR, MD Requesting Provider: Medicines: Monitored Anesthesia Care Complications: No immediate complications. Procedure: Pre-Anesthesia Assessment: - The heart rate, respiratory rate, oxygen saturations, blood pressure, adequacy of pulmonary ventilation, and response to care were monitored throughout the procedure. The Colonoscope was introduced through the anus and advanced to the cecum, identified by appendiceal orifice and ileocecal valve. The colonoscopy was performed without difficulty. The patient tolerated the procedure well. The quality of the bowel preparation was excellent. Findings: The perianal and digital rectal examinations were normal. Non-bleeding internal hemorrhoids were found during retroflexion. The hemorrhoids were small and Grade I (internal hemorrhoids that do not prolapse). No other significant abnormalities were identified in a careful examination of the remainder of the colon. The exam was otherwise without abnormality on direct and retroflexion views. Impression: - Non-bleeding internal hemorrhoids. - The examination was otherwise normal on direct and retroflexion views. - No specimens collected. - The exam was otherwise normal to the cecum. Recommendation: - Patient has a contact number available for emergencies. The signs and symptoms of potential delayed complications were discussed with the patient. Return to normal activities tomorrow. Written discharge instructions were provided to the patient. - High fiber diet. - Discharge patient to home. - Continue present medications. - Repeat colonoscopy in 5 years for surveillance. - Return to referring physician. - The findings and recommendations were discussed with the patient's family. Raul Phillips MD Raul Phillips MD 11/05/2018 11:38:53 AM This report has been signed electronically. Number of Addenda: 0 Note Initiated On: 11/05/2018 11:11 AM Estimated Blood Loss: Estimated blood loss: none.
[2018-11-05 12:25] VITALS: BP 128/70
== END 2018-11-05 12:32 | disposition home or self-care (01) ==
LOC: M OPP 09:14
PROVIDERS: ATTEND Internal Medicine Gastroenterology
DX: K64.0 First degree hemorrhoids (principal); R12 Heartburn; K22.8 Other specified diseases of esophagus; K44.9 Diaphragmatic hernia without obstruction or gangrene; K31.89 Other diseases of stomach and duodenum; Z86.010 Personal history of colon polyps
CPT/HCPCS: 43239; 45378; 88305; J3010

== ENCOUNTER → 2018-12-06 | Outpatient (CLI) | payer BC ==
[~2018-12-06] MED LIST changes: -NS 1,000 ML IV ONE
--- NOTE | 2018-12-06 17:26 | REPMRS ---
Patient History The patient states she had a clinical breast exam in 11/2018. Patient is postmenopausal. Family history of colorectal cancer under age 50 in maternal grandfather, endometrial cancer in maternal grandmother, colorectal cancer at age 49 in sister, colorectal cancer in maternal uncle. Taking estrogen for 32 years. Digital Woman Screen Mammo: December 06, 2018 - Exam #: [id number] Bilateral CC and MLO view(s) were taken. Technologist: Laisha Morales, Technologist Prior study comparison: August 23, 2017, digital woman screen mammo performed at [facility]. March 16, 2016, digital woman screen mammo performed at [facility]. February 19, 2015, digital woman screen mammo performed at [facility]. FINDINGS: The breast tissue is heterogeneously dense. This may lower the sensitivity of mammography. There is a moderate amount of heterogeneously dense fibroglandular tissue which is fairly symmetric. There is no interval development of dominant mass, architectural distortion, or clustered microcalcification typical of malignancy. There has been no change in the appearance of the mammogram from the prior studies. 3-D tomosynthesis shows no additional findings. Assessment: BI-RADS/ACR category 1 mammogram. Negative Mammogram. Recommendation Routine screening mammogram of both breasts in 1 year (for women over age 40). This patient's Lifetime Breast Cancer RIsk is estimated at 3.8 %. This mammogram was interpreted with the aid of an FDA-approved computer-aided dectection system. Electronically Signed By: William Way MD 12/06/18 1780
== END ==
LOC: M WHC 15:42
PROVIDERS: ATTEND Nurse Practitioner Women's Health
DX: Z12.31 Encounter for screening mammogram for malignant neoplasm of breast (principal); Z80.0 Family history of malignant neoplasm of digestive organs; Z80.49 Family history of malignant neoplasm of other genital organs; N60.31 Fibrosclerosis of right breast; N60.32 Fibrosclerosis of left breast

== ENCOUNTER 2019-05-19 01:46 | Emergency (ER) | payer BC, OTHER ==
[~2019-05-19] VITALS: Ht 170.2 cm; Wt 89.1 kg
[~2019-05-19 01:46] MED LIST changes: -CALC500T36 PO; +CALC500T61 PO; -DULO1CAP3; +DULO1CAP6; -ROSU5TAB4; +ROSU5TAB5
[2019-05-19] MEDS ORDERED: MORPHINE 10 MG/ML 1ML VIAL (J2270) IM ONE (03:15)
[2019-05-19] MEDS ORDERED: methylPREDNISolone INJ 125 MG/2 ML VIAL (J2930) IM ONE (06:30)
--- NOTE | 2019-05-19 06:51 | REPVR ---
EXAM: MR Lumbar Spine Without Contrast. EXAM DATE/TIME: 05/19/2019 5:02 AM CLINICAL HISTORY: 64 years old, female; Lumbago with sciatica; Patient HX: PT states pain and popping sound with bowel movement tonight, nk known other injury and left leg and foot numbness and weakness. ; Additional info: Pain / L deficit TECHNIQUE: Imaging protocol: Multiplanar magnetic resonance images of the lumbar spine without intravenous contrast. COMPARISON: No relevant prior studies available. FINDINGS: Vertebrae: There is 1-2 mm of retrolisthesis of L5 on S1. Spinal cord: The conus medullaris terminates at the T12-L1 level. The distal cord appears unremarkable. T12-L1: Imaged on the sagittal sequences only. No disc bulge. No central stenosis or foraminal narrowing. L1-L2: There is no disc bulge or herniation. The facet joints appear normal. No central or foraminal narrowing. L2-L3: There is no disc bulge or herniation. The facet joints appear normal. No central or foraminal narrowing. L3-L4: There is no disc bulge or herniation. The facet joints appear normal. No central or foraminal narrowing. L4-L5: The disc is narrowed and desiccated. There is a small diffuse disc bulge posteriorly, slightly asymmetric toward the right side. There is minimal facet joint hypertrophy. Mild central stenosis and mild right neural foraminal narrowing. L5-S1: The disc is narrowed and desiccated. There is a small diffuse bulge of the disc and there is a large disc extrusion extending inferiorly into the left lateral recess. There is compression of the left S1 nerve root in the lateral recess. There is mild bilateral facet joint hypertrophy. There is no significant compression of the thecal sac at this level. There is minimal bilateral neural foraminal narrowing. Soft tissues: The paraspinous soft tissues appear unremarkable. Other findings: The visualized aorta is normal in size. IMPRESSION: Large disc extrusion of the L5-S1 disc extending inferiorly into the left lateral recess, compressing the left S1 nerve root. Electronically signed by: Lesly Reddy On 05/19/2019 06:50:53 AM
[2019-05-19] MEDS ORDERED: PRED20TA PO (07:08)
[2019-05-19] MEDS ORDERED: VICO5TAB17 PO (07:11)
[2019-05-19 07:23] VITALS: BP 160/70
== END 2019-05-19 07:24 | disposition home or self-care (01) ==
LOC: M ED 01:46
DX: M54.30 Sciatica, unspecified side (principal); R20.2 Paresthesia of skin; M48.07 Spinal stenosis, lumbosacral region; M47.9 Spondylosis, unspecified; E11.9 Type 2 diabetes mellitus without complications; I10 Essential (primary) hypertension; K21.9 Gastro-esophageal reflux disease without esophagitis; Z91.040 Latex allergy status; Z79.899 Other long term (current) drug therapy; Z79.890 Hormone replacement therapy; Z79.84 Long term (current) use of oral hypoglycemic drugs; Z79.82 Long term (current) use of aspirin
CPT/HCPCS: 72148; 96372; 99285; J2270; J2930

== ENCOUNTER → 2019-08-30 | Outpatient (CLI) | payer BC, OTHER ==
[~2019-08-30] MED LIST changes: +PRED20TA PO; +VICO5TAB17 PO
[2019-08-30 16:21] LABS: ALBUMIN 3.7 GM/DL (3.2-5.2); ALT/SGPT 23 U/L (12-78); BILIRUBIN,TOTAL 0.3 MG/DL (0.2-1.0); BLOOD UREA NITROGEN 13 MG/DL (7-18); CALCIUM LEVEL 9.1 MG/DL (8.8-10.2); CARBON DIOXIDE LEVEL 27 MEQ/L (21-32); CHLORIDE LEVEL 105 MEQ/L (98-107); CHOLESTEROL LEVEL 169 MG/DL (<200); CHOLESTEROL RISK RATIO 3.448 (<5); CREATININE FOR GFR 0.74 MG/DL (0.55-1.30); GLOMERULAR FILTRATION RATE > 60.0 (>45); GLUCOSE, FASTING 103 MG/DL (70-100); HDL CHOLESTEROL 49 MG/DL (>40); LDL CHOLESTEROL 91 MG/DL (<100); NON-HDL-C 120 MG/DL; POTASSIUM SERUM 4.4 MEQ/L (3.5-5.1); SODIUM LEVEL 139 MEQ/L (136-145); TOTAL PROTEIN 6.6 GM/DL (6.4-8.2); TRIGLYCERIDES LEVEL 145 MG/DL (<150)
[2019-08-30 16:34] LABS: HEMOGLOBIN A1c 7.5 %
[2019-08-30 16:47] LABS: MALB URINE SIEMENS 9.8 MG/L
== END ==
LOC: M LRY 10:07
PROVIDERS: ATTEND Internal Medicine
DX: E11.42 Type 2 diabetes mellitus with diabetic polyneuropathy (principal); I10 Essential (primary) hypertension; E78.00 Pure hypercholesterolemia, unspecified

== ENCOUNTER → 2020-02-21 | Outpatient (CLI) | payer BC, OTHER ==
[2020-02-21 11:53] LABS: HEMOGLOBIN A1c 7.2 %
[2020-02-21 12:04] LABS: ALBUMIN 3.9 GM/DL (3.2-5.2); ALT/SGPT 21 U/L (12-78); BILIRUBIN,TOTAL 0.3 MG/DL (0.2-1.0); BLOOD UREA NITROGEN 15 MG/DL (7-18); CALCIUM LEVEL 9.1 MG/DL (8.8-10.2); CARBON DIOXIDE LEVEL 26 MEQ/L (21-32); CHLORIDE LEVEL 103 MEQ/L (98-107); CHOLESTEROL LEVEL 185 MG/DL (<200); CHOLESTEROL RISK RATIO 3.775 (<5); CREATININE FOR GFR 0.75 MG/DL (0.55-1.30); GLOMERULAR FILTRATION RATE > 60.0 (>45); GLUCOSE, FASTING 95 MG/DL (70-100); HDL CHOLESTEROL 49 MG/DL (>40); LDL CHOLESTEROL 107 MG/DL (<100); NON-HDL-C 136 MG/DL; POTASSIUM SERUM 4.4 MEQ/L (3.5-5.1); SODIUM LEVEL 137 MEQ/L (136-145); TOTAL PROTEIN 7.1 GM/DL (6.4-8.2); TRIGLYCERIDES LEVEL 145 MG/DL (<150)
[2020-02-21 12:11] LABS: CREATININE, URINE 86.4 MG/DL; MALB URINE SIEMENS 7.4 MG/L; MAU/CREAT RATIO 8.5 MCG/MG (0.0-30.0)
== END ==
LOC: M LRY 09:15
PROVIDERS: ATTEND Internal Medicine
DX: E11.42 Type 2 diabetes mellitus with diabetic polyneuropathy (principal); E78.00 Pure hypercholesterolemia, unspecified; I10 Essential (primary) hypertension

== ENCOUNTER 2020-06-06 05:48 | Emergency (ER) | payer BC, OTHER ==
[~2020-06-06 05:48] MED LIST changes: -ASPI81TA85 PO; +ASPI81TA86 PO
== END 2020-06-06 07:11 | disposition home or self-care (01) ==
LOC: M ED 05:48
DX: L03.116 Cellulitis of left lower limb (principal); E11.9 Type 2 diabetes mellitus without complications; Z79.84 Long term (current) use of oral hypoglycemic drugs; Z79.82 Long term (current) use of aspirin; Z79.899 Other long term (current) drug therapy; Z91.040 Latex allergy status

== ENCOUNTER → 2020-08-21 | Outpatient (CLI) | payer BC, OTHER ==
[2020-08-21 09:29] LABS: HEMATOCRIT 41.7 % (36.0-47.0); HEMOGLOBIN 13.2 g/dl (12.0-15.5); MEAN CORPUSCULAR HEMOGLOBIN 28.3 pg (27.0-33.0); MEAN CORPUSCULAR HGB CONC 31.7 g/dl (32.0-36.5); MEAN CORPUSCULAR VOLUME 89.3 fl (80.0-96.0); PLATELET COUNT, AUTOMATED 346 10^3/uL (150-450); RED BLOOD COUNT 4.67 10^6/uL (4.00-5.40); WHITE BLOOD COUNT 7.6 10^3/uL (4.0-10.0)
[2020-08-21 09:59] LABS: MALB URINE SIEMENS 15.2 MG/L; MAU/CREAT RATIO 11.5 MCG/MG (0.0-30.0)
[2020-08-21 10:10] LABS: ALT/SGPT 18 U/L (12-78); BILIRUBIN,TOTAL 0.4 MG/DL (0.2-1.0); BLOOD UREA NITROGEN 11 MG/DL (7-18); CARBON DIOXIDE LEVEL 26 MEQ/L (21-32); CHLORIDE LEVEL 105 MEQ/L (98-107); CHOLESTEROL LEVEL 162 MG/DL (<200); CHOLESTEROL RISK RATIO 3.176 (<5); CREATININE FOR GFR 0.74 MG/DL (0.55-1.30); GLOMERULAR FILTRATION RATE > 60.0 (>45); GLUCOSE, FASTING 105 MG/DL (70-100); HDL CHOLESTEROL 51 MG/DL (>40); LDL CHOLESTEROL 84 MG/DL (<100); NON-HDL-C 111 MG/DL; POTASSIUM SERUM 4.5 MEQ/L (3.5-5.1); SODIUM LEVEL 136 MEQ/L (136-145); TOTAL PROTEIN 7.4 GM/DL (6.4-8.2); TRIGLYCERIDES LEVEL 133 MG/DL (<150)
[2020-08-21 10:48] LABS: HEMOGLOBIN A1c 6.2 %
== END ==
LOC: M LAB 08:36
PROVIDERS: ATTEND Internal Medicine
DX: E78.00 Pure hypercholesterolemia, unspecified (principal); E11.65 Type 2 diabetes mellitus with hyperglycemia; I10 Essential (primary) hypertension

== ENCOUNTER → 2021-02-24 | Outpatient (CLI) | payer BC, OTHER ==
[~2021-02-24] MED LIST changes: -RABE1TAB; +RABE1TAB4
[2021-02-24 12:45] LABS: BASO % 0.2 % (0.0-1.0); EOS % 0.2 % (0.0-3.0); HEMATOCRIT 38.2 % (36.0-47.0); HEMOGLOBIN 12.1 g/dl (12.0-15.5); LYMPH # 0.6 10^3/uL (1.5-5.0); MEAN CORPUSCULAR HEMOGLOBIN 28.7 pg (27.0-33.0); MEAN CORPUSCULAR HGB CONC 31.7 g/dl (32.0-36.5); MEAN CORPUSCULAR VOLUME 90.7 fl (80.0-96.0); MONO # 0.7 10^3/uL (0.0-0.8); MONO % 17.9 % (2.0-8.0); NEUTROPHILS # 2.7 10^3/uL (1.5-8.5); NEUTROPHILS % 67.2 % (36.0-66.0); PLATELET COUNT, AUTOMATED 245 10^3/uL (150-450); RED BLOOD COUNT 4.21 10^6/uL (4.00-5.40); WHITE BLOOD COUNT 4.1 10^3/uL (4.0-10.0)
[2021-02-24 13:19] LABS: ALBUMIN 3.9 GM/DL (3.2-5.2); ALT/SGPT 29 U/L (12-78); BILIRUBIN,TOTAL 0.2 MG/DL (0.2-1.0); BLOOD UREA NITROGEN 12 MG/DL (7-18); CALCIUM LEVEL 9.3 MG/DL (8.8-10.2); CARBON DIOXIDE LEVEL 28 MEQ/L (21-32); CHLORIDE LEVEL 103 MEQ/L (98-107); CHOLESTEROL LEVEL 133 MG/DL (<200); CHOLESTEROL RISK RATIO 2.333 (<5); CREATININE FOR GFR 0.78 MG/DL (0.55-1.30); GLOMERULAR FILTRATION RATE > 60.0 (>45); GLUCOSE, FASTING 109 MG/DL (70-100); HDL CHOLESTEROL 57 MG/DL (>40); LDL CHOLESTEROL 59 MG/DL (<100); NON-HDL-C 76 MG/DL; POTASSIUM SERUM 3.7 MEQ/L (3.5-5.1); SODIUM LEVEL 138 MEQ/L (136-145); TOTAL PROTEIN 6.9 GM/DL (6.4-8.2); TRIGLYCERIDES LEVEL 83 MG/DL (<150)
[2021-02-24 13:29] LABS: HEMOGLOBIN A1c 5.8 %
== END ==
LOC: M LAB 12:21
PROVIDERS: ATTEND Internal Medicine
DX: I10 Essential (primary) hypertension (principal)

== ENCOUNTER → 2021-10-06 | Outpatient (CLI) | payer BC, OTHER | LOC: M WHC 09:08 | PROVIDERS: ATTEND Nurse Practitioner Women's Health | DX: Z12.31 Encounter for screening mammogram for malignant neoplasm of breast (principal); Z53.9 Procedure and treatment not carried out, unspecified reason ==

== ENCOUNTER → 2021-10-07 | Outpatient (CLI) | payer BC, OTHER ==
--- NOTE | 2021-10-07 14:28 | REP ---
INDICATION: MASS OF UPPER OUTER QUAD OF RIGHT BREAST. COMPARISON: Screening mammogram, 12/06/2018. TECHNIQUE: 2D and 3D cc and MLO views of both breasts were obtained. The site of the palpable abnormality is marked with a radiopaque triangle. Targeted right breast ultrasound was performed. FINDINGS[facility], the breasts are heterogeneously dense, which may obscure small masses.. There is a radiopaque triangle marking the location of the palpable abnormality in the upper-outer quadrant of the right breast. There are no suspicious calcifications, dominant masses or areas of architectural distortion in either breast. There is no mammographic correlate to the palpable abnormality in the right breast. Right breast ultrasound: There are no ultrasound abnormalities in the area of concern in the right breast. IMPRESSION: BIRADS/ACR : Category 1: Negative. This patient's Tyrer-Cuzick lifetime breast cancer risk assessment score is 3.4%. This mammogram was interpreted with the aid of an FDA-approved computer-aided detection system. Because of the density of the breasts, screening MRI/whole breast ultrasound is warranted. The patient states she had a clinical breast exam in September 2021. The patient letter being requested is M1. RECOMMENDATION: Repeat screening mammography recommended 1 year (for women over 40). <Electronically signed by Rubio Austin > 10/07/21 0105
== END ==
LOC: M WHC 07:54
PROVIDERS: ATTEND Nurse Practitioner Women's Health
DX: N63.11 Unspecified lump in the right breast, upper outer quadrant (principal)
CPT/HCPCS: 76642; 77066; G0279

== ENCOUNTER → 2022-08-04 | Outpatient (CLI) | payer MEDICARE, BC, OTHER ==
[2022-08-04 10:28] LABS: BLOOD UREA NITROGEN 17 MG/DL (7-18); CREATININE FOR GFR 0.78 MG/DL (0.55-1.30); GLOMERULAR FILTRATION RATE > 60.0 (>45)
== END ==
LOC: M LAB 09:21
PROVIDERS: ATTEND Nurse Practitioner Adult Health
DX: Z00.00 Encounter for general adult medical examination without abnormal findings (principal); M54.50 Low back pain, unspecified

== ENCOUNTER → 2022-11-16 | Outpatient (CLI) | payer MEDICARE, BC, OTHER ==
[~2022-11-16] MED LIST changes: +ASPI81CH33 PO; +ESTR1DIS2; +GABA-282; +METF-838; +MULT-90 PO; +SEMA2PEN
== END ==
LOC: M RAD 10:26
PROVIDERS: ATTEND Plastic Surgery Surgery of the Hand
DX: M54.07 Panniculitis affecting regions of neck and back, lumbosacral region (principal); M62.08 Separation of muscle (nontraumatic), other site

== ENCOUNTER → 2022-11-20 | Outpatient (CLI) | payer MEDICARE, BC, OTHER ==
[~2022-11-20] MED LIST changes: +BIOT1TAB PO; +CALCCAP4 PO; +CEQU0.09 OU; -DULO1CAP6; +DULO1CAP6 PO; -GABA-282; +GABA-282 PO; -METF-838; +METF-838 PO; -ROSU5TAB5; +ROSU5TAB5 PO; +VITA500C24 PO
== END ==
LOC: M LABSMTC 09:01
PROVIDERS: ATTEND Anesthesiology
DX: Z01.812 Encounter for preprocedural laboratory examination (principal); Z20.822 Contact with and (suspected) exposure to COVID-19

== ENCOUNTER → 2022-11-28 | Outpatient (CLI) | payer MEDICARE, BC, OTHER | LOC: M LABSMTC 10:02 | PROVIDERS: ATTEND Anesthesiology | DX: Z01.812 Encounter for preprocedural laboratory examination (principal); Z11.52 Encounter for screening for COVID-19 ==

== ENCOUNTER 2022-12-01 10:33 | Observation (INO) | payer MEDICARE, BC, OTHER ==
[~2022-12-01] VITALS: Ht 170.2 cm; Wt 70.8 kg
[2022-12-01] MEDS ORDERED: MIDAZOLAM INJ 2MG/2ML VIAL As Ordered ONE (10:43)
[2022-12-01] MEDS ORDERED: fentaNYL 100 MCG/2 ML INJECTION As Ordered ONE (10:43)
[2022-12-01] MEDS ORDERED: LIDOCAINE 2% 100MG/5ML SDV (FOR ANES.) As Ordered ONE (10:44)
[2022-12-01] MEDS ORDERED: propofoL 200 MG/20 ML VIAL As Ordered ONE (10:44)
[2022-12-01] MEDS ORDERED: ROCURONIUM BROMIDE 50MG/5ML VIAL As Ordered ONE ×2 (10:44→15:43)
[2022-12-01] MEDS ORDERED: ONDANSETRON 4MG 2ML VIAL As Ordered ONE (10:44)
[2022-12-01] MEDS ORDERED: SUGAMMADEX SODIUM 500 MG/5 ML VIAL (BRIDION) As Ordered ONE (10:44)
[2022-12-01] MEDS ORDERED: LR 1,000 ML IV SCH (11:20)
[2022-12-01] MEDS ORDERED: ceFAZolin SOD 2 GM in IV 1 EA IV ONE (11:25)
[2022-12-01] MEDS ORDERED: BUPIVACAINE HCL 0.25% 30ML VIAL As Ordered ONE (14:20)
[2022-12-01] MEDS ORDERED: GENTAMICIN SULF 80MG/2ML VIAL As Ordered ONE (14:20)
[2022-12-01] MEDS ORDERED: BUPIVACAINE LIPOSOME/PF 1.3% 20ML VIAL (13.3MG/ML)(EXPAREL) As Ordered ONE (14:21)
[2022-12-01] MEDS ORDERED: HYDROmorphone HCL 2MG/ML 1ML VIAL As Ordered ONE (15:23)
[2022-12-01] MEDS ORDERED: HEPARIN SOD (PORCINE) 5000UNITS/ML 1ML VIAL/SYRINGE As Ordered ONE (15:28)
[2022-12-01] MEDS ORDERED: LACRILUBE (AKWA TEARS) OPHTH OINT 3.5GM As Ordered ONE (15:28)
[2022-12-01] MEDS ORDERED: ACETAMINOPHEN 1000MG 100ML IV BAG As Ordered ONE (15:45)
[2022-12-01] MEDS ORDERED: METOCLOPRAMIDE INJ 10MG/2ML VIAL As Ordered ONE (17:29)
[2022-12-01] MEDS ORDERED: fentaNYL 100 MCG/2 ML INJECTION IV PRN (18:15)
[2022-12-01] MEDS ORDERED: ONDANSETRON 4MG 2ML VIAL IV PRN ×2 (18:15→18:25)
[2022-12-01] MEDS ORDERED: oxyCODONE 5MG TAB PO PRN (18:15)
[2022-12-01] MEDS ORDERED: traMADol 50 MG TAB PO PRN (18:25)
[2022-12-01] MEDS ORDERED: ACETAMINOPHEN TAB 650MG DOSE (2X325MG) PO PRN (18:25)
[2022-12-01 20:10] VITALS: BP 161/75
[2022-12-01] MEDS: LR 1,000 ML IV SCH (20:21)
[2022-12-01 20:40] VITALS: BP 154/76
[2022-12-01 21:10] VITALS: BP 144/66
[2022-12-01 22:10] VITALS: BP 146/67
[2022-12-01] MEDS: ceFAZolin SOD 1 GM in D5W MINI-BAG PLUS 50 ML IV SCH (22:40)
[2022-12-01 23:10] VITALS: BP 148/69
[2022-12-02 00:10] VITALS: BP 146/69
[2022-12-02 01:10] VITALS: BP 146/69
[2022-12-02 02:00] VITALS: BP 147/69
[2022-12-02] MEDS: PERCOCET 5MG/325MG TAB PO PRN ×2 (02:52→08:29)
[2022-12-02 06:00] VITALS: BP 146/60
[2022-12-02] MEDS: ceFAZolin SOD 1 GM in D5W MINI-BAG PLUS 50 ML IV SCH (06:05)
[2022-12-02] MEDS: LR 1,000 ML IV SCH (06:05)
[2022-12-02] MEDS ORDERED: metFORMIN (GLUCOPHAGE) 1000MG TABLET PO SCH (08:00)
[2022-12-02] MEDS ORDERED: DOCUSATE SODIUM 100MG CAPSULE PO SCH (09:00)
[2022-12-02] MEDS ORDERED: TRAM50TA2 PO (09:31)
[2022-12-02 10:00] VITALS: BP 124/65
== END 2022-12-02 11:40 | disposition home or self-care (01) ==
LOC: M SDC 10:33 → M MS5PR 10:34
PROVIDERS: ADMIT Plastic Surgery Surgery of the Hand; ATTEND Plastic Surgery Surgery of the Hand
DX: M54.02 Panniculitis affecting regions of neck and back, cervical region (principal); E11.9 Type 2 diabetes mellitus without complications; E78.5 Hyperlipidemia, unspecified; K21.9 Gastro-esophageal reflux disease without esophagitis; Z91.040 Latex allergy status; F41.9 Anxiety disorder, unspecified; F32.A Depression, unspecified; Z79.899 Other long term (current) drug therapy; Z79.82 Long term (current) use of aspirin
CPT/HCPCS: 15830; 15847; 88300; 96365; 96366; C9290; G0378; J0131; J0690; J1100; J1170; J1580; J1644; J2250; J2405; J2765; J3010

== ENCOUNTER → 2023-01-24 | Outpatient (CLI) | payer MEDICARE, BC, OTHER ==
[~2023-01-24] MED LIST changes: +TRAM50TA2 PO
== END ==
LOC: M WHC 08:31
PROVIDERS: ATTEND Advanced Practice Midwife
DX: Z12.31 Encounter for screening mammogram for malignant neoplasm of breast (principal); R92.8 Other abnormal and inconclusive findings on diagnostic imaging of breast

== ENCOUNTER → 2023-02-07 | Outpatient (CLI) | payer MEDICARE, BC, OTHER | LOC: M WHC 08:27 | PROVIDERS: ATTEND Advanced Practice Midwife | DX: R92.2 Inconclusive mammogram (principal) | CPT/HCPCS: 77065; G0279 ==

== ENCOUNTER → 2024-02-13 | Outpatient (CLI) | payer MEDICARE, BC | LOC: M WHC 10:54 | PROVIDERS: ATTEND Advanced Practice Midwife | DX: Z12.31 Encounter for screening mammogram for malignant neoplasm of breast (principal); R92.323 Mammographic fibroglandular density, bilateral breasts ==

== ENCOUNTER 2024-03-20 06:52 | Day surgery (SDC) | payer MEDICARE, BC ==
[~2024-03-20] VITALS: Ht 170.2 cm; Wt 69.4 kg
[~2024-03-20 06:52] MED LIST changes: -RABE1TAB4; +RABE1TAB4 PO; +ROSU5TAB40 PO; -ROSU5TAB5 PO; +XIID5DRO
[2024-03-20] MEDS ORDERED: fentaNYL 100 MCG/2 ML INJECTION As Ordered ONE (07:55)
[2024-03-20] MEDS ORDERED: LIDOCAINE 2% 100MG/5ML SDV (FOR ANES.) As Ordered ONE (07:55)
[2024-03-20] MEDS ORDERED: propofoL 500 MG/50 ML VIAL As Ordered ONE (07:55)
[2024-03-20 08:28] VITALS: TEMP 97.6
[2024-03-20 08:49] VITALS: BP 133/77; O2SAT 99
== END 2024-03-20 09:03 | disposition home or self-care (01) ==
LOC: M OPP 06:52
PROVIDERS: ATTEND Internal Medicine Gastroenterology
DX: Z12.11 Encounter for screening for malignant neoplasm of colon (principal); Z86.010 Personal history of colon polyps; Z80.0 Family history of malignant neoplasm of digestive organs; K64.0 First degree hemorrhoids; K57.30 Diverticulosis of large intestine without perforation or abscess without bleeding; K44.9 Diaphragmatic hernia without obstruction or gangrene; K31.89 Other diseases of stomach and duodenum; K29.50 Unspecified chronic gastritis without bleeding; K52.89 Other specified noninfective gastroenteritis and colitis; R12 Heartburn; E11.9 Type 2 diabetes mellitus without complications; Z79.02 Long term (current) use of antithrombotics/antiplatelets; Z79.818 Long term (current) use of other agents affecting estrogen receptors and estrogen levels; Z79.82 Long term (current) use of aspirin; Z79.84 Long term (current) use of oral hypoglycemic drugs
CPT/HCPCS: 43239; 88305; G0105; J3010

== ENCOUNTER → 2024-04-05 | Outpatient (CLI) | payer MEDICARE, BC | LOC: M LAB 08:44 | PROVIDERS: ATTEND Internal Medicine Gastroenterology | DX: R85.7 Abnormal histological findings in specimens from digestive organs and abdominal cavity (principal); Z86.010 Personal history of colon polyps ==

== ENCOUNTER → 2024-09-23 | Outpatient (REF) | payer MEDICARE, BC ==
[~2024-09-23] MED LIST changes: +GABA-1172 PO; -GABA-282 PO; -ROSU5TAB40 PO; +ROSU5TAB49 PO
== END ==
LOC: M LAB REF 16:29
PROVIDERS: ATTEND Student in an Organized Health Care Education/Training Program
DX: R30.0 Dysuria (principal)

== ENCOUNTER → 2024-10-18 | Outpatient (REF) | payer MEDICARE, BC ==
[2024-10-18 17:44] LABS: Trichomonas vaginalis (AMP) NOT DETECTED (NEGATIVE)
[2024-10-18 18:08] LABS: GC DNA AMPLIFICATION NEGATIVE (NEGATIVE)
== END ==
LOC: M LAB REF 16:22
PROVIDERS: ATTEND Nurse Practitioner Family
DX: R30.0 Dysuria (principal); Z11.3 Encounter for screening for infections with a predominantly sexual mode of transmission; Z72.89 Other problems related to lifestyle

== ENCOUNTER → 2024-11-19 | Outpatient (REF) | payer MEDICARE, BC | LOC: M SFHCWAGY 14:48 | PROVIDERS: ATTEND Nurse Practitioner Family | DX: N39.0 Urinary tract infection, site not specified (principal) ==

== ENCOUNTER → 2024-11-19 | Outpatient (REF) | payer MEDICARE, BC | LOC: M SFHCWAGY 15:03 | PROVIDERS: ATTEND Nurse Practitioner Family | DX: N39.0 Urinary tract infection, site not specified (principal) ==

== ENCOUNTER → 2025-02-13 | Outpatient (CLI) | payer MEDICARE, BC | LOC: M WHC 10:49 | PROVIDERS: ATTEND Advanced Practice Midwife | DX: Z12.31 Encounter for screening mammogram for malignant neoplasm of breast (principal); R92.333 Mammographic heterogeneous density, bilateral breasts ==